=== PATIENT | female | born 1960 | race Caucasian/White ===

== ENCOUNTER 2017-09-29 09:03 | Observation (INO) | payer OTHER ==
[~2017-09-29] VITALS: Ht 165.1 cm; Wt 66.8 kg
[2017-09-29 09:43] LABS: HEMOGLOBIN 14.1 G/DL (11.9-15.5); MCH 31.3 PG (29.0-34.0); MCHC 36.2 G/DL (30.0-36.0); MCV 86.7 FL (83-99); PLATELET COUNT 227 K/uL (156-360); RBC DIS.WIDTH-CV 11.7 % (11.8-14.6); RBC DIS.WIDTH-SD 37.3 % (39-53); WHITE BLOOD COUNT 14.6 K/uL (4.1-10.2)
[2017-09-29 09:53] LABS: ALBUMIN 4.2 g/dL (3.2-4.8)
[2017-09-29 09:54] LABS: CHLORIDE 104 mEq/L (99-109); POTASSIUM 3.8 mEq/L (3.7-5.4); SODIUM 138 mEq/L (136-147)
[2017-09-29 09:56] LABS: GLUCOSE 148 mg/dL (70-99); TOTAL PROTEIN 7.2 g/dL (6.4-8.3)
[2017-09-29 09:59] LABS: ALKALINE PHOSPHATASE 75 IU/L (3-129)
[2017-09-29 10:00] LABS: CREATININE 0.8 mg/dL (0.6-1.3); GFR ESTIMATE (CALCULATED) > 59 mL/min/
[2017-09-29 10:01] LABS: AST (GOT) 20 IU/L (2-34); UREA NITROGEN (BUN) 11 mg/dL (9-23)
[2017-09-29 10:02] LABS: ALT (GPT) 18 IU/L (3-49)
[2017-09-29 10:03] LABS: LIPASE 21 U/L (1.0-51.0)
[2017-09-29 11:26] LABS: APPEARANCE CLEAR ((CLEAR)); BILIRUBIN NEGATIVE; BLOOD NEGATIVE; COLOR YELLOW ((YELLOW)); GLUCOSE (STRIP) NEGATIVE; KETONES 5; LEUKOCYTES NEGATIVE; NITRITE NEGATIVE; PROTEIN (STRIP) 30; UROBILINOGEN 0.2 MG/DL (0.2-1.0)
[2017-09-29] MEDS ORDERED: ZYRTEC10 M3 PO (12:08)
[2017-09-29] MEDS ORDERED: NASONEX17 GM BOTH NARES (12:09)
[2017-09-29 14:49] VITALS: BP 152/83
[2017-09-29 20:02] VITALS: BP 131/63
[2017-09-30 00:05] VITALS: BP 113/56
[2017-09-30 04:03] VITALS: BP 129/60
[2017-09-30 06:49] LABS: HEMATOCRIT 32.9 % (36.0-46.0); MCH 31.2 PG (29.0-34.0); MCHC 34.7 G/DL (30.0-36.0); MCV 90.1 FL (83-99); PLATELET COUNT 174 K/uL (156-360); RBC DIS.WIDTH-CV 12.4 % (11.8-14.6); RBC DIS.WIDTH-SD 40.3 % (39-53); RED BLOOD COUNT 3.65 M/uL (3.80-5.20); WHITE BLOOD COUNT 10.3 K/uL (4.1-10.2)
[2017-09-30 07:05] LABS: CHLORIDE 108 MEQ/L (99-109); CREATININE 0.8 MG/DL (0.6-1.3); GFR ESTIMATE (CALCULATED) > 59 mL/min/; GLUCOSE 116 mg/dL (70-99); SODIUM 142 MEQ/L (136-147); UREA NITROGEN (BUN) 10 mg/dL (9-23)
[2017-09-30 07:25] LABS: HEMOGLOBIN 11.4 G/DL (11.9-15.5)
[2017-09-30 07:42] VITALS: BP 97/54
[2017-09-30] MEDS ORDERED: AUGMENTIN875 MG PO (11:04)
[2017-09-30] MEDS ORDERED: ENDOCET 5-3251 EACH PO (11:04)
[2017-09-30] MEDS ORDERED: ZOFRAN ODT4 MG PO (11:04)
[2017-09-30 15:21] VITALS: BP 153/70
== END 2017-09-30 19:19 | disposition home or self-care (01) ==
LOC: EME 09:03 → EDOF 12:16 → 2EAST 12:16 → ENRESERV 12:20 → 2EAST 14:31
PROVIDERS: Nurse Practitioner Family; Surgery
PROC: 0DTJ4ZZ Resection of Appendix, Percutaneous Endoscopic Approach (ICD-10-PCS; principal; 2017-09-29)
DX: K35.80 Unspecified acute appendicitis (principal); E86.0 Dehydration; Z88.6 Allergy status to analgesic agent; Z88.8 Allergy status to other drugs, medicaments and biological substances
CPT/HCPCS: 74177; 80048; 80053; 81003; 83690; 84484; 85027; 93005; 94799; 99281; 99285; G0378; J0330; J1100; J1170; J1650; J2270; J2405; J2710; J2765; J3010; J7030; J7120; J7643; S0020; S0028; S0074